=== PATIENT | female | born 1950 | race African-American/Black ===

== ENCOUNTER 2018-03-03 17:26 | Observation (INO) | payer OTHER ==
[~2018-03-03] VITALS: Ht 152.4 cm; Wt 78.3 kg
[~2018-03-03 17:26] MED LIST: BACLOFEN10 MG OR; FORTAMET1000 MG PO; GLIP10TA55 PO; PRAVACHOL20 MG PO
[2018-03-03 17:35] VITALS: BP 99/44; TEMP 98
[2018-03-03 18:12] LABS: PLATELET COUNT 306 K/uL (152-353)
[2018-03-03 18:28] LABS: POTASSIUM 5.1 mmol/L (3.6-5.2)
[2018-03-03 20:21] VITALS: BP 12/64; TEMP 97.9
[2018-03-03] MEDS ORDERED: FURO20TA67 PO (20:30)
[2018-03-03] MEDS ORDERED: IBUPROFEN200 MG PO (20:31)
[2018-03-03 21:26] VITALS: BP 120/60; TEMP 97.8; Ht 152.4 cm; Wt 78.3 kg
[2018-03-04 00:10] VITALS: BP 123/61; TEMP 98.8
[2018-03-04 03:54] VITALS: BP 102/46; TEMP 97.7
[2018-03-04 05:42] LABS: PLATELET COUNT 281 K/uL (152-353)
[2018-03-04 08:00] VITALS: BP 112/58; TEMP 97.6
[2018-03-04 11:39] VITALS: BP 110/52; TEMP 97.6
[2018-03-04 16:00] VITALS: BP 112/51; TEMP 97.5
[2018-03-04 20:00] VITALS: BP 111/54; TEMP 97.9
== END 2018-03-04 23:20 | disposition short-term general hospital (02) ==
LOC: ED 17:26 → MED/SURG 20:00
PROVIDERS: Emergency Medicine
DX: J18.8 Other pneumonia, unspecified organism (principal); N17.8 Other acute kidney failure; I12.0 Hypertensive chronic kidney disease with stage 5 chronic kidney disease or end stage renal disease; E11.22 Type 2 diabetes mellitus with diabetic chronic kidney disease; N18.5 Chronic kidney disease, stage 5; Z79.84 Long term (current) use of oral hypoglycemic drugs; M54.6 Pain in thoracic spine; M54.5 Low back pain
CPT/HCPCS: 36415; 80053; 81000; 85027; 87040; 87086; 87088; 94640; 94664; 94760; 96365; 99220; 99284; G0378; J0456; J0696; J1610; J1650; J2405; J3370

== ENCOUNTER 2018-09-09 11:45 | Inpatient (IN) | payer OTHER ==
[2018-09-09] VITALS (7 sets, daily range): BP systolic 89–130; BP diastolic 47–82; TEMP 97.7–97.9; Ht 157.5 cm; Wt 78.9 kg
[~2018-09-09] VITALS: Ht 157.5 cm; Wt 78.9 kg
[~2018-09-09 11:45] MED LIST changes: +FURO20TA67 PO; +IBUPROFEN200 MG PO
[2018-09-09 12:57] LABS: PLATELET COUNT 283 K/uL (152-353)
[2018-09-09 12:59] LABS: POTASSIUM 4.5 mmol/L (3.6-5.2); SODIUM 135 mmol/L (136-145)
[2018-09-10] MEDS ORDERED: GLIP10TA55 PO
[2018-09-10] MEDS ORDERED: LISI10TA11 PO
[2018-09-10 04:00] VITALS: BP 107/56; TEMP 98.2
[2018-09-10 12:01] LABS: PLATELET COUNT 292 K/uL (152-353)
[2018-09-10 12:13] LABS: POTASSIUM 4.1 mmol/L (3.6-5.2)
[2018-09-10 21:30] VITALS: BP 105/55; TEMP 97.9
[2018-09-11 04:20] VITALS: BP 90/50; TEMP 98
[2018-09-11 05:47] LABS: PLATELET COUNT 259 K/uL (152-353)
[2018-09-11 06:00] LABS: POTASSIUM 4.3 mmol/L (3.6-5.2)
[2018-09-11 12:07] VITALS: BP 77/47; TEMP 98.2
[2018-09-11 20:00] VITALS: BP 128/62; TEMP 98.6
[2018-09-11 23:51] VITALS: BP 116/60; TEMP 98.2
[2018-09-12 04:26] VITALS: BP 118/57; TEMP 98.5
[2018-09-12 05:46] LABS: PLATELET COUNT 266 K/uL (152-353)
[2018-09-12 06:05] LABS: POTASSIUM 4.3 mmol/L (3.6-5.2)
[2018-09-12 19:55] VITALS: BP 123/75; TEMP 98.5
[2018-09-13] VITALS: BP 108/53; TEMP 98.5
[2018-09-13 04:01] VITALS: BP 114/54; TEMP 98.7
[2018-09-13 04:25] LABS: PLATELET COUNT 300 K/uL (152-353)
[2018-09-13 05:16] LABS: POTASSIUM 4.9 mmol/L (3.6-5.2)
[2018-09-13 16:22] VITALS: BP 128/65; TEMP 98.4
[2018-09-13 20:00] VITALS: BP 118/62; TEMP 97.7
[2018-09-13] MEDS ORDERED: LANTUS100 UNIT/M SC (22:09)
[2018-09-14 04:00] VITALS: BP 117/53; TEMP 98.3
[2018-09-14 06:49] LABS: POTASSIUM 4.3 mmol/L (3.6-5.2)
[2018-09-14 07:32] LABS: PLATELET COUNT 303 K/uL (152-353)
[2018-09-14] MEDS ORDERED: LEVAQUIN250 MG PO (12:11)
[2018-09-14] MEDS ORDERED: MEDROL DOSEPAK4 MG PO (12:11)
[2018-09-14 21:51] VITALS: BP 132/66; TEMP 98.4
[2018-09-14 22:05] VITALS: BP 133/67
[2018-09-14 22:20] VITALS: BP 130/64
[2018-09-14 22:50] VITALS: BP 114/62
[2018-09-14 23:29] VITALS: BP 122/67
[2018-09-15] VITALS (15 sets, daily range): BP systolic 103–136; BP diastolic 51–73; TEMP 97.9–98.1
[2018-09-15 04:29] LABS: PLATELET COUNT 326 K/uL (152-353)
[2018-09-15 05:18] LABS: POTASSIUM 3.8 mmol/L (3.6-5.2)
== END 2018-09-15 16:00 | disposition home or self-care (01) | DRG 195 ==
LOC: ED 11:45 → MED/SURG 13:30 → ICU 09-14 21:50
PROVIDERS: Emergency Medicine; Family Medicine
DX: J18.8 Other pneumonia, unspecified organism (principal); R07.89 Other chest pain; I10 Essential (primary) hypertension; E11.9 Type 2 diabetes mellitus without complications; K21.9 Gastro-esophageal reflux disease without esophagitis; M54.89 Other dorsalgia; R06.09 Other forms of dyspnea; E11.65 Type 2 diabetes mellitus with hyperglycemia
CPT/HCPCS: 36415; 36600; 80053; 81000; 81002; 82550; 82553; 82805; 82947; 83036; 83735; 84100; 84484; 85027; 85379; 93005; 94760; 96372; 96374; 99284; J1650; J1815; J1885; J2175; J2270; J2920; J3490; Q9963

== ENCOUNTER 2019-03-31 10:35 | Emergency (ER) | payer OTHER ==
[~2019-03-31] VITALS: Ht 157.5 cm; Wt 78.9 kg
[~2019-03-31 10:35] MED LIST changes: +LANTUS100 UNIT/M SC; +LEVAQUIN250 MG PO; +LISI10TA11 PO; +MEDROL DOSEPAK4 MG PO
[2019-03-31 10:43] VITALS: TEMP 98.4
[2019-03-31 11:07] LABS: PLATELET COUNT 219 K/uL (152-353)
[2019-03-31 16:50] VITALS: BP 116/56
== END 2019-03-31 16:50 | disposition home or self-care (01) ==
LOC: ED 10:35
PROVIDERS: Emergency Medicine
DX: K57.90 Diverticulosis of intestine, part unspecified, without perforation or abscess without bleeding (principal); R10.84 Generalized abdominal pain; N30.90 Cystitis, unspecified without hematuria
CPT/HCPCS: 36415; 80053; 81000; 82150; 82550; 82553; 83690; 84484; 85027; 96374; 99284; J1885; Q9963

== ENCOUNTER 2020-05-16 11:45 | Emergency (ER) | payer OTHER ==
[~2020-05-16] VITALS: Ht 157.5 cm; Wt 73.5 kg
[2020-05-16 11:51] VITALS: BP 135/73; TEMP 100.5
[2020-05-16 12:45] LABS: PLATELET COUNT 322 K/uL (152-353)
[2020-05-16 12:48] LABS: POTASSIUM 4.8 mmol/L (3.6-5.2)
[2020-05-16 13:52] LABS: PARTIAL THROMBOPLASTIN TIME 25.6 SECONDS (24.5-33.6)
== END 2020-05-16 18:13 | disposition home or self-care (01) ==
LOC: ED 11:45
PROVIDERS: Family Medicine
DX: J12.9 Viral pneumonia, unspecified (principal); M79.18 Myalgia, other site; Z20.828 Contact with and (suspected) exposure to other viral communicable diseases
CPT/HCPCS: 36415; 80053; 81000; 82728; 83605; 85027; 85379; 85610; 85730; 87040; 87077; 87185; 87186; 87205; 87502; 87635; 87651; 96360; 96361; 96365; 99284; J0456; Q9963; U0003

== ENCOUNTER 2020-11-11 01:25 | Emergency (ER) | payer OTHER ==
[~2020-11-11] VITALS: Ht 160 cm; Wt 76.2 kg
[~2020-11-11 01:25] MED LIST changes: +CIPR500T PO; +LISITAB PO; +METFORMIN ER1000 MG PO
[2020-11-11 02:17] LABS: PLATELET COUNT 242 K/uL (152-353)
[2020-11-11 02:23] LABS: POTASSIUM 4.1 mmol/L (3.6-5.2)
[2020-11-11 03:21] VITALS: BP 166/64; TEMP 98.4
== END 2020-11-11 03:29 | disposition home or self-care (01) ==
LOC: ED 01:45
PROVIDERS: Family Medicine
DX: J06.9 Acute upper respiratory infection, unspecified (principal); E11.65 Type 2 diabetes mellitus with hyperglycemia; Z79.84 Long term (current) use of oral hypoglycemic drugs; Z20.828 Contact with and (suspected) exposure to other viral communicable diseases
CPT/HCPCS: 36415; 80053; 85027; 87502; 87635; 87651; 99283; U0003

== ENCOUNTER 2021-06-12 13:26 | Emergency (ER) | payer OTHER ==
[~2021-06-12] VITALS: Ht 160 cm; Wt 76.2 kg
[2021-06-12 15:16] VITALS: BP 118/72; TEMP 97.1
== END 2021-06-12 15:16 | disposition home or self-care (01) ==
LOC: ED 13:26
DX: M54.6 Pain in thoracic spine (principal)
CPT/HCPCS: 96372; 99283; J1885

== ENCOUNTER 2021-09-28 19:26 | Emergency (ER) | payer OTHER ==
[~2021-09-28] VITALS: Ht 160 cm; Wt 73.5 kg
[2021-09-28 20:55] VITALS: BP 154/60; TEMP 98.2
== END 2021-09-28 20:55 | disposition home or self-care (01) ==
LOC: ED 19:26
DX: E11.42 Type 2 diabetes mellitus with diabetic polyneuropathy (principal); M79.604 Pain in right leg
CPT/HCPCS: 96372; 99283; J1885

== ENCOUNTER 2022-07-10 16:27 | Emergency (ER) | payer OTHER ==
[~2022-07-10] VITALS: Ht 154.9 cm; Wt 78.0 kg
[2022-07-10 17:18] LABS: PLATELET COUNT 259 K/uL (152-353)
[2022-07-10 17:26] LABS: POTASSIUM 4.2 mmol/L (3.6-5.2)
[2022-07-10 18:34] VITALS: BP 145/60; TEMP 98
== END 2022-07-10 18:36 | disposition home or self-care (01) ==
LOC: ED 16:27
PROVIDERS: Emergency Medicine Emergency Medical Services
DX: M54.89 Other dorsalgia (principal); G89.29 Other chronic pain; M47.814 Spondylosis without myelopathy or radiculopathy, thoracic region; Z20.822 Contact with and (suspected) exposure to COVID-19
CPT/HCPCS: 80053; 81002; 83735; 84484; 85027; 87502; 87635; 93005; 96360; 96374; 99284; J1885; U0003

== ENCOUNTER 2022-08-03 10:54 | Emergency (ER) | payer OTHER ==
[~2022-08-03] VITALS: Ht 154.9 cm; Wt 80.7 kg
[2022-08-03 11:04] VITALS: TEMP 97
[2022-08-03 11:43] LABS: PLATELET COUNT 258 K/uL (152-353)
[2022-08-03 11:44] LABS: POTASSIUM 4.1 mmol/L (3.6-5.2)
[2022-08-03 13:01] VITALS: BP 144/66
== END 2022-08-03 13:05 | disposition home or self-care (01) ==
LOC: ED 10:54
PROVIDERS: Emergency Medicine
DX: M79.18 Myalgia, other site (principal); E86.0 Dehydration
CPT/HCPCS: 80053; 81002; 82550; 84484; 85027; 87502; 96372; 99283; J1885